=== PATIENT | female | born 1960 | race Caucasian/White ===

== ENCOUNTER 2021-11-03 16:00 | Emergency (ER) | payer SELFPAY ==
[~2021-11-03] VITALS: Ht 152.4 cm; Wt 78.0 kg
[2021-11-03 16:11] VITALS: BP 200/91
[2021-11-03 18:21] LABS: BASOPHILS % 0.7 % (0.0-2.0); EOSINOPHILS % 1.6 % (0.0-5.0); HEMATOCRIT. 41.1 % (36.0-48.0); HEMOGLOBIN. 13.8 g/dL (12.0-16.0); MEAN CORPUSCULAR HEMOGLOBIN 29.8 pg (28.0-32.0); MEAN CORPUSCULAR VOLUME 88.9 fL (81.0-99.0); MEAN PLATELET VOLUME 9.5 fl (7.4-10.4); MONOCYTES % 11.3 % (2.0-8.0); NEUTROPHILS % 61.4 % (40.0-76.0); PLATELET 172 x1000/uL (130-400); RED BLOOD CELL COUNT 4.62 mill/uL (4.2-5.4); RED CELL DISTRIBUTION WIDTH 14.5 % (11.6-14.6)
[2021-11-03 18:26] LABS: CHLORIDE 108 mEq/L (98-107)
[2021-11-03] MEDS ORDERED: AMOX-494 MT (18:33)
[2021-11-03] MEDS ORDERED: LOSA50TA41 MT (18:33)
== END 2021-11-03 18:47 | disposition home or self-care (01) ==
LOC: ER 16:00
DX: K04.01 Reversible pulpitis (principal); I10 Essential (primary) hypertension; Z68.33 Body mass index [BMI] 33.0-33.9, adult; E11.9 Type 2 diabetes mellitus without complications; Z98.890 Other specified postprocedural states
CPT/HCPCS: 36415; 80048; 85025; 99283

== ENCOUNTER 2022-02-07 12:56 | Emergency (ER) | payer MEDICAID ==
[~2022-02-07] VITALS: Ht 152.4 cm; Wt 77.0 kg
[~2022-02-07 12:56] MED LIST: AMOX-494 MT; LOSA50TA41 MT
[2022-02-07] MEDS ORDERED: BO1 TP (15:08)
[2022-02-07] MEDS ORDERED: IBUP-2029 MT (15:08)
[2022-02-07 15:15] VITALS: BP 151/71
[2022-02-07] MEDS ORDERED: TETANUS, DIPHTHERIA, PERTUSSIS VAC/PF 0.5ML (>10YR OLD) IM ONE (15:15)
[2022-02-07] MEDS ORDERED: BACITRACIN ZINC OINT UDPKT TOP ONE (15:15)
[2022-02-07] MEDS ORDERED: LIDOCAINE HCL/PF 1% 10 MG/ML 5ML VIAL INFIL ONE (15:15)
[2022-02-07] MEDS ORDERED: IBUPROFEN 600MG TABLET PO ONE (15:15)
== END 2022-02-07 16:41 | disposition home or self-care (01) ==
LOC: ER 13:02
DX: S61.412A Laceration without foreign body of left hand, initial encounter (principal); W45.8XXA Other foreign body or object entering through skin, initial encounter; Y93.89 Activity, other specified; Y92.89 Other specified places as the place of occurrence of the external cause; Y99.8 Other external cause status
CPT/HCPCS: 12002; 90471; 90715; 99283; J3490

== ENCOUNTER 2023-11-25 10:14 | Emergency (ER) | payer MEDICAID ==
[~2023-11-25] VITALS: Ht 152.4 cm; Wt 68.0 kg
[~2023-11-25 10:14] MED LIST changes: +BO1 TP; +IBUP-2029 MT
[2023-11-25 10:16] VITALS: O2SAT 100
[2023-11-25 10:25] VITALS: BP 191/77; PULSE 60; RESP 18; TEMP 98.6; O2SAT 100
[2023-11-25 10:51] LABS: BASOPHILS % 0.5 % (0.0-2.0); EOSINOPHILS % 2.4 % (0.0-5.0); HEMATOCRIT. 41.9 % (36.0-48.0); HEMOGLOBIN. 13.8 g/dL (12.0-16.0); LYMPHOCYTES % 36.4 % (20.0-50.0); MEAN CORPUSCULAR HEMOGLOBIN 30.1 pg (28.0-32.0); MEAN CORPUSCULAR VOLUME 91.1 fL (81.0-99.0); MEAN PLATELET VOLUME 9.4 fl (7.4-10.4); MONOCYTES % 8.7 % (2.0-8.0); PLATELET 192 x1000/uL (130-400); RED BLOOD CELL COUNT 4.59 mill/uL (4.2-5.4); WHITE BLOOD COUNT 9.4 x1000/uL (4.5-11.0)
[2023-11-25 10:58] LABS: CHLORIDE 106 mEq/L (98-107); POTASSIUM 4.1 mEq/L (3.5-5.1); SODIUM 138 mEq/L (136-145)
[2023-11-25 10:59] LABS: CARBON DIOXIDE 26 mEq/L (21-32)
[2023-11-25 11:00] LABS: CALCIUM 9.5 mg/dL (8.7-10.4)
[2023-11-25 11:04] LABS: CREATININE 0.9 mg/dL (0.6-1.0); GLUCOSE 154 mg/dL (70-105)
[2023-11-25 11:05] LABS: UREA NITROGEN BLOOD 13 mg/dL (9-23)
[2023-11-25 11:08] LABS: TROPONIN I HIGH SENSITIVITY < 4 ng/L (3.0-34)
[2023-11-25] MEDS: LOSARTAN 50 MG TABLET PO ONE (11:17)
[2023-11-25] MEDS ORDERED: ACETAMINOPHEN 650MG/20.3ML UDC PO ONE (12:15)
== END 2023-11-25 12:32 | disposition home or self-care (01) ==
LOC: ER 10:14
DX: I10 Essential (primary) hypertension (principal); Z98.890 Other specified postprocedural states
CPT/HCPCS: 36415; 71045; 80048; 84484; 85025; 93005; 99285

== ENCOUNTER 2024-02-07 22:38 | Emergency (ER) | payer MEDICAID ==
[~2024-02-07] VITALS: Ht 152.4 cm; Wt 76.6 kg
[2024-02-07 22:42] VITALS: BP 195/89; PULSE 96; RESP 22; TEMP 97.7; O2SAT 98
== END 2024-02-07 23:33 | disposition left against medical advice (07) ==
LOC: ER 22:38
DX: I10 Essential (primary) hypertension (principal); Z53.21 Procedure and treatment not carried out due to patient leaving prior to being seen by health care provider; Z98.890 Other specified postprocedural states